=== PATIENT | female | born 1955 ===

== ENCOUNTER 2017-03-25 09:40 | Day surgery (SDC) | payer BC ==
[2017-03-25] MEDS ORDERED: Propofol 10 mg/ml Inj (20 ML) ONE (10:40)
[2017-03-25] MEDS ORDERED: Lactated Ringer's 500 ML IV ONE (10:52)
[2017-03-25 11:10] VITALS: PULSE 50; TEMP 97
[2017-03-25 11:22] VITALS: BP 100/50; RESP 16; O2SAT 99
== END 2017-03-25 15:19 | disposition home or self-care (01) ==
LOC: H.ENDO 09:40
PROVIDERS: ATTEND Internal Medicine Gastroenterology
DX: Z12.11 Encounter for screening for malignant neoplasm of colon (principal); I10 Essential (primary) hypertension; K64.8 Other hemorrhoids
CPT/HCPCS: 45378; J2001; J2704; J7120